=== PATIENT | female | born 1955 | race Caucasian/White ===

== ENCOUNTER 2020-04-25 13:58 | Outpatient (CLI) | payer BC, SELFPAY ==
--- NOTE | ~2020-04-25 | MM_ITS ---
EXAMINATION: MM screening [facility] BI w medhat HISTORY: Screening mammogram TECHNIQUE: Craniocaudal and mediolateral oblique 3-D tomosynthesis images were obtained and synthetic 2-D images were generated. CAD analysis was submitted and interpreted. COMPARISON: No prior mammogram is available for comparison at this institution. BREAST PARENCHYMAL COMPOSITION: The breasts are heterogeneously dense, which may obscure small masses . FINDINGS: There is bilateral architectural distortion. Initial comparison with prior mammograms would be helpful to evaluate for stability. Otherwise bilateral diagnostic mammography is recommended, wit h ultrasound if required. Comparison with prior mammograms IMPRESSION: 1. Bilateral architectural distortion 2. Comparison with prior mammograms is recommended; if there is not stability for a period of 2 or mo re years, then bilateral diagnostic mammography and possible breast ultrasound examination would be r ecommended. BI-RADS Category 0: Incomplete: Needs additional imaging evaluation. Reviewed, dictated and finalized at location A. IMPRESSION: 1. Bilateral architectural distortion 2. Comparison with prior mammograms is recommended; if there is not stability f or a period of 2 or more years, then bilateral diagnostic mammography and possi ble breast ultrasound examination would be recommended. BI-RADS Category 0: Incomplete: Needs additional imaging evaluation.
== END 2020-04-25 13:59 | disposition home or self-care (01) ==
LOC: ANHIMG 14:05
PROVIDERS: PCP Family Medicine; Visit Provider Family Medicine
DX: Z12.31 Encounter for screening mammogram for malignant neoplasm of breast (principal); R92.8 Other abnormal and inconclusive findings on diagnostic imaging of breast
CPT/HCPCS: 77063; 77067